=== PATIENT | male | born 1970 | race Caucasian/White ===

== ENCOUNTER → 2018-07-24 11:05 | Outpatient (CLI) | payer OTHER, SELFPAY ==
--- NOTE | 2018-07-24 | DI.RAD.S_ITS ---
PROCEDURE: FL SHOULDER INJECTION MR/CT RT INDICATIONS: INCOMPLETE ROTATOR CUFF TEAR TECHNIQUE: The indications, alternatives, benefits, risks, and complications of the procedure were explained to the patient. Written informed consent was obtained and placed in the chart. The shoulder was examined fluoroscopically and a site for needle placement chosen for entry into the glenohumeral joint from an anterior approach. The skin was prepped and draped in a sterile fashion, and 1% lidocaine infiltrated from skin down to joint capsule. A spinal needle was inserted into the glenohumeral joint, and a small amount of iodinated contrast media injected to confirm intra-articular placement of the needle tip. This was followed by approximately 12 mL dilute solution of a gadolinium containing MR contrast agent. The needle was removed and a dressing was applied. The patient was given postprocedural instructions and sent to the MR suite for MR imaging. FINDINGS: A single fluoroscopic spot image demonstrates intra-articular location of injected iodinated contrast. This image shows lateral subacromial/subdeltoid bursal amorphous calcifications and also what may be a chondroid matrix lesion involving the right humeral head/neck junction also present without definite car changer time from shoulder MRI 2015. IMPRESSION: Successful fluoroscopically guided administration of dilute Gadolinium solution into the shoulder joint for MR arthrogram. Note is made of what appears to be a chondroid matrix lesion involving the marrow space of the right humeral head/neck junction and also dystrophic calcifications within the subacromial/subdeltoid bursal space. Dictated by: Kota Back M.D. on 07/24/2018 at 13:23 Approved by: Kota Back M.D. on 07/24/2018 at 13:26
--- NOTE | 2018-07-24 | DI.MRI.S_ITS ---
PROCEDURE: MR SHOULDER RT W CON INDICATIONS: Right shoulder pain TECHNIQUE: After the administration of 12 mL of dilute intra-articular Gadolinium contrast, oblique coronal T1 and T2 spin echo with fat saturation, oblique sagittal T1 spin echo with and without fat saturation, oblique sagittal T2 fast spin echo with fat saturation, axial T1 spin echo with fat saturation through the shoulder. COMPARISON: [facility] [place], CR, XR SHOULDER 2+ VIEWS RIGHT, 07/05/2018, 8:58. [facility], MR, SHOULDER WITH CONTRAST, 11/10/2015, 15:08. FINDINGS: Image quality: Diagnostic. Rotator cuff: Prominent calcifications along the distal margin of the supraspinatus and infraspinatus tendons is more prominent on the current study, compared to the previous exam. There is associated supraspinatus tendinopathy with at least low moderate grade partial-thickness tearing. Mild subscapularis tendinopathy is present with areas of low-grade partial-thickness tearing. There is mild infraspinatus tendinopathy without significant tethering. The teres minor tendon is intact. There is no significant atrophy of the rotator cuff muscles. Bones and bursae: There is no acute fracture, dislocation, or suspicious osseous lesion evident involving the osseous structures of the right shoulder. There continues to be a focal area of heterogeneous density involving the right proximal humeral metaphysis, which correlates with an area of sclerosis on the conventional radiographs. The surrounding marrow edema is identified. The overall appearance is unchanged since the previous MRI from 11/10/15. There is adequate distention of the glenohumeral joint with the injected contrast treatment of this contrast extends into the subacromial subdeltoid bursa to suggest a nonvisualized full-thickness tear of the rotator cuff. There is a small amount of fluid contained within the subacromial subdeltoid bursa. There are moderate degenerative changes of the acromioclavicular joint. Capsule and soft tissues: Heterogeneity of the superior labrum is present without a discrete labral tear evident. The long head of the biceps tendon is normally positioned within the bicipital groove and is otherwise intact and unremarkable. The superior, middle, and inferior glenohumeral ligaments are within normal limits. IMPRESSION: 1. Low to moderate grade partial-thickness tearing and tendinopathy of the supraspinatus and subscapularis tendons. 2. 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 3. Moderate degenerative changes of the acromioclavicular joint. 4. Sclerotic lesion of the proximal humeral metaphysis appears unchanged since 2016, reassuring for a benign process. However, this appearance is of uncertain etiology and continued radiographic and MR followup is recommended. 6 month followup MRI of the right shoulder with intravenous contrast is recommended. Dictated by: Eduin Bess M.D. on 07/24/2018 at 12:15 Approved by: Eduin Bess M.D. on 07/24/2018 at 12:21
== END ==
PROVIDERS: Family Provider Physician Assistant Medical; PCP Physician Assistant Medical; Visit Provider Orthopaedic Surgery
DX: M25.511 Pain in right shoulder (principal); M75.111 Incomplete rotator cuff tear or rupture of right shoulder, not specified as traumatic; M75.31 Calcific tendinitis of right shoulder; M19.011 Primary osteoarthritis, right shoulder; M89.9 Disorder of bone, unspecified
CPT/HCPCS: 23350; 73222; 77002